=== PATIENT | female | born 1985 ===

== ENCOUNTER 2017-11-17 16:43 | Emergency (ER) | payer MEDICARE, MEDICAID ==
[~2017-11-17] VITALS: Ht 5200 cm; Wt 47.7 kg
[2017-11-17] MEDS ORDERED: diphenhydrAMINE 50 mg/ml inj IM ONE (17:15)
[2017-11-17] MEDS ORDERED: haloperidol lactate 5mg/ml inj IM ONE (17:15)
[2017-11-17] MEDS ORDERED: LORazepam 2 mg/ml vial IM ONE (17:15)
[2017-11-17] MEDS ORDERED: normal saline 1000ML IV soln IV ONE (17:20)
[2017-11-17 18:23] LABS: BASOPHILS # (AUTO) 0.1 X10'3 (0-0.2); BASOPHILS % (AUTO) 1.6 % (0-1); EOSINOPHILS % (AUTO) 0.3 % (0-6); HEMATOCRIT 34.3 % (35.0-45.0); HEMOGLOBIN 11.4 g/dl (12.0-16.0); LYMPHOCYTES % (AUTO) 21.9 % (21-51); MEAN CORPUSCULAR HEMOGLOBIN 25.2 PG (27.0-31.0); MEAN CORPUSCULAR HGB CONC 33.3 % (33.0-36.5); MEAN CORPUSCULAR VOLUME 75.6 FL (78-98); MEAN PLATELET VOLUME 7.5 FL (7.4-10.4); MONOCYTES # (AUTO) 0.7 X10'3 (0-0.9); MONOCYTES % (AUTO) 7.3 % (2-12); NEUTROPHILS # (AUTO) 6.2 X10'3 (1.8-7.7); NEUTROPHILS % (AUTO) 68.9 % (42-75); PLATELET COUNT 372 X10'3 (140-440); RED BLOOD COUNT 4.53 X10'6 (4.20-5.60); RED CELL DISTRIBUTION WIDTH 19.5 % (11.5-14.5); WHITE BLOOD COUNT 9.1 X10'3 (4.5-11.0)
[2017-11-17 18:43] LABS: ALANINE AMINOTRANSFERASE 18 U/L (12-78); ALBUMIN 4.3 G/DL (3.4-5.0); ALKALINE PHOSPHATASE 155 IU/L (46-116); ANION GAP 22 (8-16); ASPARTATE AMINO TRANSFERASE 20 U/L (10-37); BLOOD UREA NITROGEN 18 MG/DL (7-18); BUN/CREATININE RATIO 18.2 (6.6-38.0); CALCIUM 9.7 MG/DL (8.5-10.1); CHLORIDE 100 MMOL/L (99-107); CREATININE 0.99 MG/DL (0.40-0.90); GLUCOSE 77 MG/DL (70-104); POTASSIUM 3.9 MMOL/L (3.5-5.1); SODIUM 140 MMOL/L (135-145); TOTAL PROTEIN 8.5 G/DL (6.4-8.2); eGFR 65 ML/MIN
[2017-11-18] MEDS ORDERED: CLON-527 PO (02:48)
[2017-11-18] MEDS ORDERED: OLAN7.5T3 PO (02:48)
[2017-11-18] MEDS ORDERED: CITA40TA22 PO (02:48)
[2017-11-18] MEDS: OLANZapine 2.5MG tablet PO SCH ×3 (03:35→21:34)
[2017-11-18] MEDS: citalopram 20mg tablet PO SCH (03:35)
[2017-11-18] MEDS ORDERED: LORazepam 1 MG tablet PO ONE (03:55)
[2017-11-18 10:54] LABS: CLARITY,URINE Clear (Clear); COLOR,URINE Yellow (Yellow); GLUCOSE, URINE Negative (Neg); KETONES,URINE 15 mg/dl (Neg); LEUKOCYTE ESTERASE ,URINE Negative (Neg); NITRITES, URINE Positive (Neg); OCCULT BLOOD,URINE Negative (Neg); PH,URINE 5.5 (4.8-8.0); PROTEIN,URINE Negative (Neg)
[2017-11-18 10:55] LABS: UA COLLECTION TYPE VOIDED
[2017-11-18 11:04] LABS: URINE AMPHETAMINE SCREEN POSITIVE (Neg); URINE BARBITUATE SCREEN NEGATIVE (Neg); URINE BENZODIAZEPINES SCREEN NEGATIVE (Neg); URINE CANNABINOID SCREEN NEGATIVE (Neg); URINE COCAINE SCREEN NEGATIVE (Neg); URINE METHADONE SCREEN NEGATIVE (Neg); URINE OPIATE SCREEN POSITIVE (Neg); URINE PHENCYCLIDINE SCREEN NEGATIVE (Neg)
[2017-11-18 11:09] LABS: BACTERIA,URINE 2+ /HPF (Neg); RBC,URINE NONE SEEN /HPF (0-2); SQUAMOUS EPITHELIAL CELL,UR FEW /LPF (FEW); WBC,URINE 0-4 /HPF (0-4)
[2017-11-19] MEDS: citalopram 20mg tablet PO SCH (08:16)
[2017-11-19] MEDS: OLANZapine 2.5MG tablet PO SCH ×2 (08:16→20:10)
[2017-11-19] MEDS ORDERED: lisinopril 10 MG tablet PO ONE (17:40)
[2017-11-19 18:13] LABS: PREOP URINE HCG NEGATIVE (NEGATIVE)
[2017-11-19] MEDS: LORazepam 1 MG tablet PO SCH ×2 (20:08→20:10)
[2017-11-20 05:33] VITALS: BP 103/71
[2017-11-20] MEDS ORDERED: citalopram 20mg tablet PO SCH (08:00)
[2017-11-20] MEDS ORDERED: olanzapine 10mg tablet PO SCH (08:00)
== END 2017-11-20 07:55 ==
LOC: ER 16:44
DX: F23 Brief psychotic disorder (principal); R44.3 Hallucinations, unspecified; F31.9 Bipolar disorder, unspecified; Z88.8 Allergy status to other drugs, medicaments and biological substances; Z79.899 Other long term (current) drug therapy
CPT/HCPCS: 36415; 80053; 80305; 80320; 81001; 81025; 82948; 84443; 85025; 96360; 96361; 96372; 99285; J1200; J1630; J2060; J3490; J7030